=== PATIENT | male | born 1980 | race Caucasian/White ===

== ENCOUNTER 2021-02-16 20:16 | Emergency (ER) | payer OTHER ==
[2021-02-16 21:20] VITALS: BP 144/82
[2021-02-16] MEDS ORDERED: TETANUS/DIPHTHERIA/PERTUSSIS 0.5 ML SYRINGE IM ONE (21:36)
[2021-02-16] MEDS ORDERED: BUFFERED LIDOCAINE 10 ML SYRINGE SUBQ STA (21:36)
[2021-02-16] MEDS ORDERED: BACITRACIN ZINC OINT 1 PACKET TOP STA (21:37)
--- NOTE | 2021-02-16 21:39 | ED Physician Documentation ---
History of Present Illness - Stated complaint Stated Complaint: THUMB INJ/NUMB - Chief complaint Chief Complaint: Laceration - Additonal information Additional information: 40 year old male here with a laceration to the base of the left thumb after accidentally stabbing himself with a knife. now with numbness distal to the laceration on the radial side of the thumb. last tetanus 7-10 years ago Review of Systems Constitutional: reports: Reviewed and negative Nose: reports: Reviewed and negative Throat: reports: Reviewed and negative Cardiac: reports: Reviewed and negative Respiratory: reports: Reviewed and negative Skin: reports: Laceration (s) Musculoskeletal: reports: Reviewed and negative PD PAST MEDICAL HISTORY - Present Medications Home Medications: Ambulatory Orders Medication Instructions Recorded Confirmed Atorvastatin [Lipitor] 20 mg PO DAILY 02/16/21 02/16/21 Dextroamphetamine Sulfate 20 mg PO DAILY 02/16/21 02/16/21 Methylphenidate HCl [Concerta] 27 mg PO DAILY 02/16/21 02/16/21 buPROPion HCL [Bupropion HCl Sr] 1 tab PO DAILY 02/16/21 02/16/21 - Allergies Allergies/Adverse Reactions: Allergies Allergy/AdvReac Type Severity Reaction Status Date / Time No Known Drug Allergies Allergy Verified 02/16/21 20:31 PD ED PE EXPANDED - Extremities Extremities: Left finger(s) (1 cm laceration base of the left thumb. Preserved flexion extension against resistance at MCP and DIP. There is some numbness and paresthesia on the radial side of the thumb distal to the laceration.) Results - Vitals Vitals: Vital Signs - 24 hr 02/16/21 02/16/21 20:27 21:19 Temperature 36.7 C Heart Rate 83 71 Respiratory 16 23 Rate Blood Pressure 132/86 H 144/82 H O2 Saturation 98 100 Oxygen O2 Source Room air Procedures - Laceration (location) thumb laceration left Wound type: Linear, Into subcut fat Neurovascular status: Motor intact, Vascular intact, Other (Numbness distal to the laceration radial side left thumb.) Tendon involvement: Tendon intact Anesthesia: Lidocaine 1% Wound preparation: Irrigated copiously NS Skin layer closure: Nylon, Interrupted, Size #-0 - enter number (4), Sutures - enter # (2) Other: Patient tolerated well, No complications, Tetanus booster given PD MEDICAL DECISION MAKING - ED course Complexity details: d/w patient ED course: 40-year-old male presents emergency department for evaluation of a laceration on the left thumb at the base radial side. He has preserved flexion extension no evidence of tendon injury however distal to the laceration is somewhat numb therefore I do suspect that he may have lacerated the nerve. Wound was easily closed with 2 sutures. Routine wound care emergent return precautions were discussed. Departure - Departure Disposition: 01 Home, Self Care Clinical Impression: Laceration of left thumb Qualifiers: Encounter type: initial encounter Damage to nail status: without damage Foreign body presence: without foreign body Qualified Code(s): S61.012A - Laceration without foreign body of left thumb without damage to nail, initial encounter Condition: Stable Record reviewed to determine appropriate education?: Yes Instructions: ED Laceration Hand Comments: Your suture should be removed in 7 days. In 24 hours you may remove the dressing wash gently with warm soap and water, apply any antibiotic ointment and a simple bandage. Your tetanus is up-to-date. Please attempt to keep your wound clean and dry. Do not submerge it in dirty dishwater or bath water. Return to the emergency department if you have any concerns of infection such as redness, fevers milky drainage increased pain. As we discussed I do suspect that you may have lacerated the nerve. Unfortunately there is no specific treatment for this however in many instances sensation will return after a few weeks or a few months.
== END 2021-02-16 21:54 | disposition home or self-care (01) ==
LOC: ED 20:16
DX: S61.012A Laceration without foreign body of left thumb without damage to nail, initial encounter (principal); W26.0XXA Contact with knife, initial encounter; Z23 Encounter for immunization
CPT/HCPCS: 12001; 90471; 90715; 99282; 99283; A9270